=== PATIENT | male | born 1970 | race Caucasian/White ===

== ENCOUNTER → 2016-10-01 | Outpatient (CLI) | payer BC ==
--- NOTE | 2016-10-01 11:49 | DI ---
HISTORY: Abdominal distention. COMPARISON: None available. TECHNIQUE: Sonographic images of the abdomen were obtained and submitted for interpretation. 112 im ages. FINDINGS: The aorta and IVC demonstrate no acute findings. The pancreas is largely obscured by overlying bowel shadows. The liver returns a heterogeneous echotexture and spans approximately 20.5 cm. No gallstones are identified. The gallbladder wall measures 2 mm in thickness. The common bile duct measures 4 mm in diameter. The right kidney measures 14.7 cm in length. Left kidney measures 14.7 cm in length. There is no co ntour deforming renal mass or hydronephrosis. The spleen measures 11.7 cm. IMPRESSION: 1. The pancreas is largely obscured by overlying bowel shadows. 2. The liver returns a heterogeneous echotexture and spans approximately 20.5 cm. NOTE: The interpreting Radiologist was not present at the time of ultrasound interrogation.
== END ==
LOC: US 10:51
PROVIDERS: ATTEND Family Medicine
DX: R19.8 Other specified symptoms and signs involving the digestive system and abdomen (principal)
CPT/HCPCS: 76700